=== PATIENT | male | born 1970 | race Caucasian/White ===

== ENCOUNTER 2022-04-16 08:51 | Day surgery (SDC) | payer OTHER ==
[~2022-04-16] VITALS: Ht 180.3 cm; Wt 85.0 kg
[2022-04-16] MEDS ORDERED: CLOP75 (09:59)
[2022-04-16] MEDS ORDERED: DOCU100 (09:59)
[2022-04-16] MEDS ORDERED: AMLO5 (09:59)
[2022-04-16] MEDS ORDERED: FAMO20 (10:00)
[2022-04-16] MEDS ORDERED: METO50ER (10:01)
[2022-04-16] MEDS ORDERED: PRED20 (10:02)
[2022-04-16] MEDS ORDERED: TRAZ50 (10:03)
--- NOTE | 2022-04-16 13:03 | NUR ---
PT DRESSED, IV DC'D INTACT, PT CHOOSES TO AMB WITH DAUGHTER DRIVING PT HOME, GAVE DAUGHTER 2 STATLOCKS FOR USE WITH NEW NEPH TUBES
== END 2022-04-16 13:30 | disposition home or self-care (01) ==
LOC: MHTC 08:51
DX: N13.9 Obstructive and reflux uropathy, unspecified (principal); Z93.6 Other artificial openings of urinary tract status; Z98.890 Other specified postprocedural states; Z86.79 Personal history of other diseases of the circulatory system; N13.30 Unspecified hydronephrosis
CPT/HCPCS: 50435; 99152; 99153; C1729; C1769; J2250; J3010; J7030; J7040; Q9967

== ENCOUNTER → 2024-03-09 | Outpatient (CLI) | payer OTHER ==
[~2024-03-09] MED LIST: AMLO5; CLOP75; DOCU100; FAMO20; METO50ER; PRED20; TRAZ50
== END ==
LOC: LAB SHORT 07:40 → PLD 07:40
DX: H02.89 Other specified disorders of eyelid (principal)
CPT/HCPCS: 88305

== ENCOUNTER 2024-06-17 13:59 | Emergency (ER) | payer OTHER ==
[~2024-06-17] VITALS: Ht 177.8 cm; Wt 83.9 kg
[2024-06-17 14:50] LABS: BASOPHILS ABSOLUTE AUTO 0.02 K/mm3 (0.00-0.23); BASOPHILS PERCENT AUTO 0 % (0-2); EOSINOPHILS ABSOLUTE AUTO 0.01 K/mm3 (0.00-0.68); EOSINOPHILS PERCENT AUTO 0 % (0-6); Hematocrit 39.8 % (37.0-53.0); Hemoglobin 13.7 g/dL (13.5-17.5); IMMATURE GRAN ABSOLUTE AUTO 0.11 K/mm3 (0.00-0.10); IMMATURE GRAN PERCENT AUTO 1 % (0-1); LYMPHOCYTES ABSOLUTE AUTO 0.69 K/mm3 (0.84-5.20); LYMPHOCYTES PERCENT AUTO 6 % (21-46); MONOCYTES ABSOLUTE AUTO 0.28 K/mm3 (0.16-1.47); MONOCYTES PERCENT AUTO 2 % (4-13); Mean Corpuscular HGB 31.1 pg (26.0-34.0); Mean Corpuscular HGB Conc 34.4 g/dL (31.5-36.5); Mean Corpuscular Volume 90 fL (80-100); NEUTROPHILS ABSOLUTE AUTO 10.96 K/mm3 (1.96-9.15); NEUTROPHILS PERCENT AUTO 91 % (41-73); Platelet Count 169 K/mm3 (150-400); Red Blood Cell Count 4.41 M/mm3 (4.30-5.90); White Blood Cell Count 12.07 K/mm3 (4.00-11.30)
[2024-06-17 15:10] LABS: Albumin, Blood 2.6 g/dL (3.4-5.0); Albumin/Globulin Ratio 0.7 (0.8-1.8); Bilirubin, Total 0.5 mg/dL (0.1-1.0); Calcium, Blood 8.3 mg/dL (8.5-10.1); Creatinine, Blood 1.78 mg/dL (0.60-1.20); Globulin, Blood 3.6 g/dL (2.2-4.0); Potassium, Blood 4.4 mmol/L (3.5-5.5); Total Protein, Blood 6.2 g/dL (6.4-8.2)
[2024-06-17 16:48] LABS: Source, Urine Clean Catch
[2024-06-17 16:52] LABS: Appearance, Urine Clear (Clear); Bilirubin, Urine Neg (Neg); Blood, Urine 2+ (Neg); Color, Urine Yellow (P-Yellow); Glucose Qualitative, Urine Neg (Neg); Ketones, Urine Neg (Neg); Leukocyte Esterase, Urine Neg (Neg); Nitrite, Urine Neg (Neg); Protein, Urine 4+ (Neg); Urobilinogen, Urine NORM (Normal)
[2024-06-17 17:11] LABS: Bacteria Few /hpf; Mucus Light (0-Heavy); Squamous Epithelial Cells Not Seen /hpf (Few); White Blood Cells, Urine 0-2 /hpf (0-5)
[2024-06-17] MEDS ORDERED: Prochlorperazine Edisylate 10 mg Vial IV ONE (17:30)
[2024-06-17] MEDS ORDERED: COMPAZINE10 MG PO (17:33)
[2024-06-17 17:45] VITALS: BP 140/102
== END 2024-06-17 17:54 | disposition home or self-care (01) ==
LOC: ER 13:59
PROVIDERS: Physician Assistant
DX: R60.0 Localized edema (principal); Z79.02 Long term (current) use of antithrombotics/antiplatelets; Z79.52 Long term (current) use of systemic steroids; Z79.899 Other long term (current) drug therapy
CPT/HCPCS: 80053; 81001; 85025; 96374; 99284-25; J0780

== ENCOUNTER 2024-07-13 07:37 | Day surgery (SDC) | payer OTHER ==
[2024-07-13] VITALS (7 sets, daily range): BP systolic 136–152; BP diastolic 80–103
[~2024-07-13 07:37] MED LIST changes: +COMPAZINE10 MG PO; +NS IV SCH; +RITUXIMAB ABBS IV SCH
[2024-07-13] MEDS ORDERED: DiphenhydrAMINE HCL 25 MG Cap PO SCH (08:55)
[2024-07-13] MEDS ORDERED: Acetaminophen 500 MG Tab PO SCH (08:55)
[2024-07-13] MEDS ORDERED: Vitamin D1000 UNI1 PO (11:00)
[2024-07-13] MEDS ORDERED: TUMS500 MG PO (11:00)
[2024-07-13] MEDS ORDERED: DEXA2 PO (11:01)
[2024-07-13] MEDS ORDERED: MULVITA PO (11:01)
== END 2024-07-13 14:02 | disposition home or self-care (01) ==
LOC: ATC 07:37
DX: K68.2 Retroperitoneal fibrosis (principal)
CPT/HCPCS: 96413; 96415; A9270; J7050; Q5115

== ENCOUNTER 2024-07-27 00:55 | Day surgery (SDC) | payer OTHER ==
[~2024-07-27 00:55] MED LIST changes: +DEXA2 PO; +MULVITA PO; -NS IV SCH; -RITUXIMAB ABBS IV SCH; +TUMS500 MG PO; +Vitamin D1000 UNI1 PO
[2024-07-27] MEDS ORDERED: Acetaminophen 500 MG Tab PO SCH (07:15)
[2024-07-27] MEDS ORDERED: DiphenhydrAMINE HCL 25 MG Cap PO SCH (07:15)
[2024-07-27 07:47] VITALS: BP 152/107
[2024-07-27] MEDS ORDERED: RITUXIMAB ABBS IV SCH (08:00)
[2024-07-27] MEDS ORDERED: NS IV SCH (08:00)
[2024-07-27 08:57] VITALS: BP 165/105
[2024-07-27 09:35] VITALS: BP 145/105
[2024-07-27 10:04] VITALS: BP 135/98
[2024-07-27 12:00] VITALS: BP 144/101
== END 2024-07-27 12:02 | disposition home or self-care (01) ==
LOC: ATC 00:55
DX: K68.2 Retroperitoneal fibrosis (principal); Z79.899 Other long term (current) drug therapy
CPT/HCPCS: 96413; 96415; A9270; J7050; Q5115

== ENCOUNTER 2024-09-08 15:35 | Inpatient (IN) | payer OTHER ==
[~2024-09-08] VITALS: Ht 177.8 cm; Wt 81.9 kg
[2024-09-08] MEDS ORDERED: Ipratropium/Albuterol SulF 2.5-0.5MG/3 ML Amp INH ONE (16:25)
[2024-09-08 16:57] LABS: BASOPHILS ABSOLUTE AUTO 0.01 K/mm3 (0.00-0.23); BASOPHILS PERCENT AUTO 0 % (0-2); EOSINOPHILS PERCENT AUTO 0 % (0-6); Hematocrit 33.7 % (37.0-53.0); Hemoglobin 11.7 g/dL (13.5-17.5); IMMATURE GRAN ABSOLUTE AUTO 0.28 K/mm3 (0.00-0.10); IMMATURE GRAN PERCENT AUTO 4 % (0-1); LYMPHOCYTES ABSOLUTE AUTO 0.33 K/mm3 (0.84-5.20); LYMPHOCYTES PERCENT AUTO 4 % (21-46); MONOCYTES ABSOLUTE AUTO 0.14 K/mm3 (0.16-1.47); MONOCYTES PERCENT AUTO 2 % (4-13); Mean Corpuscular HGB 31.8 pg (26.0-34.0); Mean Corpuscular HGB Conc 34.7 g/dL (31.5-36.5); Mean Corpuscular Volume 92 fL (80-100); Mean Platelet Volume 11.1 fL (9.1-12.4); NEUTROPHILS ABSOLUTE AUTO 6.82 K/mm3 (1.96-9.15); NEUTROPHILS PERCENT AUTO 90 % (41-73); NRBC ABSOLUTE 0.47 K/mm3 (0.00-0.02); NRBC Auto 6.2 /100 WBC (0.0-0.2); Platelet Count 243 K/mm3 (150-400); RDW Coefficient Variation 16.8 % (11.7-14.2); RDW Standard Deviation 56.4 fL (35.1-46.3); Red Blood Cell Count 3.68 M/mm3 (4.30-5.90); White Blood Cell Count 7.58 K/mm3 (4.00-11.30)
[2024-09-08 17:36] LABS: Albumin, Blood 2.2 g/dL (3.4-5.0); Albumin/Globulin Ratio 0.5 (0.8-1.8); Bilirubin, Total 0.9 mg/dL (0.1-1.0); Bun/Creatinine Ratio 20.4 (12.0-20.0); Calcium, Blood 9.8 mg/dL (8.5-10.1); Creatinine, Blood 1.96 mg/dL (0.60-1.20); Globulin, Blood 4.5 g/dL (2.2-4.0); Total Protein, Blood 6.7 g/dL (6.4-8.2)
[2024-09-08] MEDS ORDERED: Aspirin 325 MG Tab PO ONE (18:25)
[2024-09-08] MEDS ORDERED: Furosemide 10 MG/ML 4ML Vial IV ONE (18:45)
[2024-09-08] MEDS ORDERED: Ondansetron HCl 2 MG / ML 2ML Vial IV PRN (19:15)
[2024-09-08 20:14] LABS: Base Excess Venous -2.8 mmol/L; Bicarbonate Venous 22.8 mmol/L (24.0-30.0); PCO2 Venous 29.3 mmHg (38-42); pH Blood Venous 7.46 (7.34-7.37)
[2024-09-08 20:39] LABS: Source, Urine Clean Catch
[2024-09-08 20:42] LABS: Appearance, Urine Hazy (Clear); Bilirubin, Urine Neg (Neg); Blood, Urine 4+ (Neg); Color, Urine Yellow (P-Yellow); Glucose Qualitative, Urine Neg (Neg); Ketones, Urine Neg (Neg); Leukocyte Esterase, Urine Neg (Neg); Nitrite, Urine Neg (Neg); Protein, Urine 4+ (Neg); Specific Gravity, Urine 1.015 (1.003-1.022); Urobilinogen, Urine NORM (Normal)
[2024-09-08 20:56] LABS: Bacteria Few /hpf; Hyaline Casts 0-2 /lpf (0-2); Red Blood Cells, Urine 0-2 /hpf (0-2); Squamous Epithelial Cells Mod /hpf (Few); White Blood Cells, Urine 0-2 /hpf (0-5)
[2024-09-08] MEDS ORDERED: Heparin Sodium,Porcine 5,000 UNIT/0.5 ML SDV SC SCH (21:00)
[2024-09-08] MEDS ORDERED: Famotidine 20 MG Tab PO SCH (21:00)
[2024-09-08 21:34] LABS: U Amphetamine Screen Not Detected; U Barbituate Screen Not Detected; U Benzodiazapine Screen Not Detected; U Buprenorphine Screen Not Detected; U Cannabinoids Screen DETECTED; U Cocaine Screen Not Detected; U Methadone Screen Not Detected; U Methamphetamine Screen Not Detected; U Opiates Screen Not Detected; U Oxycodone Screen Not Detected; U Phencyclidine Screen Not Detected
[2024-09-08 22:28] LABS: Adenovirus Not Detected (NOT DETECT); Coronavirus 229E Not Detected (NOT DETECT); Coronavirus HKU1 Not Detected (NOT DETECT); Coronavirus NL63 Not Detected (NOT DETECT); Coronavirus OC43 Not Detected (NOT DETECT); Human Metapneumovirus Not Detected (NOT DETECT); Human Rhinovirus/Enterovirus Not Detected (NOT DETECT); Influenza A/2009-H1 Not Detected (NOT DETECT); Influenza A/H1 Not Detected (NOT DETECT); Influenza A/H3 Not Detected (NOT DETECT); SARS-Cov-2 (COVID-19), BioFire Not Detected (NOT DETECT)
[2024-09-08 22:29] LABS: Bordetella pertussis Not Detected (NOT DETECT); Chlamydophila pneumoniae Not Detected (NOT DETECT); Influenza B Not Detected (NOT DETECT); Mycoplasma pneumoniae Not Detected (NOT DETECT); Parainfluenza Virus 1 Not Detected (NOT DETECT); Parainfluenza Virus 2 Not Detected (NOT DETECT); Parainfluenza Virus 3 Not Detected (NOT DETECT); Parainfluenza Virus 4 Not Detected (NOT DETECT); Respiratory Syncytial Virus Not Detected (NOT DETECT)
[2024-09-09 00:10] VITALS: BP 126/110
[2024-09-09 01:42] LABS: Hematocrit 31.7 % (37.0-53.0); Hemoglobin 10.5 g/dL (13.5-17.5); Mean Corpuscular HGB 31.4 pg (26.0-34.0); Mean Corpuscular HGB Conc 33.1 g/dL (31.5-36.5); Mean Corpuscular Volume 95 fL (80-100); Mean Platelet Volume 10.9 fL (9.1-12.4); NRBC ABSOLUTE 0.29 K/mm3 (0.00-0.02); NRBC Auto 4.7 /100 WBC (0.0-0.2); Platelet Count 203 K/mm3 (150-400); RDW Coefficient Variation 16.8 % (11.7-14.2); RDW Standard Deviation 58.4 fL (35.1-46.3); Red Blood Cell Count 3.34 M/mm3 (4.30-5.90); White Blood Cell Count 6.18 K/mm3 (4.00-11.30)
[2024-09-09] MEDS ORDERED: ROSUVASTATIN CA40 MG PO (01:49)
[2024-09-09] MEDS ORDERED: FUROSEMIDE40 MG PO (01:50)
[2024-09-09] MEDS ORDERED: POTA8 PO (01:52)
[2024-09-09 02:10] LABS: Bun/Creatinine Ratio 22.8 (12.0-20.0); Calcium, Blood 8.8 mg/dL (8.5-10.1); Creatinine, Blood 1.93 mg/dL (0.60-1.20); Magnesium, Blood 2.6 mg/dL (1.6-2.4); Potassium, Blood 3.2 mmol/L (3.5-5.5)
[2024-09-09 05:15] VITALS: BP 126/91
--- NOTE | 2024-09-09 05:58 | NUR ---
SHIFT SUMMARY PT ARRIVED FROM ER AROUND MIDNIGHT. PT ABLE TO TRANSFER WITH SBA FROM [place] TO BED. ORIENTED TO ROOM. PT ARRIVED ON 5L OF OXYGEN, HOWEVER PT WAS SATING AROUND 85%. O2 INCREASED TO 7L OF HIGH FLOW OXYGEN WITH HUMIDITY. PT WITH 3+ EDEMA IN BILATERAL FEET. MEGHANA HOSE STOCKING PLACED. LACTIC ACID IMPROVED FROM 2.2 TO 1.9. NO EVENTS ON TELE, PT NSR @ 78. DENIES PAIN. VERY SOB WITH ACTIVITY. BED IN LOWEST POSITION AND CALL LIGHT IN REACH.
[2024-09-09 08:01] VITALS: BP 134/94
[2024-09-09] MEDS ORDERED: Dexamethasone 2 MG Tab PO SCH (09:00)
[2024-09-09] MEDS ORDERED: Clopidogrel Bisulfate 75 MG Tab PO SCH (09:00)
[2024-09-09] MEDS ORDERED: Furosemide 10 MG/ML 4ML Vial IV SCH (09:00)
[2024-09-09] MEDS ORDERED: AmLODIPine Besylate 5 MG Tab PO SCH (09:00)
[2024-09-09] MEDS ORDERED: Azithromycin 500 MG in NS 250 ML IV SCH (09:35)
[2024-09-09] MEDS ORDERED: Potassium Chloride 20 MEQ TabCR PO ONE (09:35)
[2024-09-09] MEDS ORDERED: CefTRIAXone Sodium 1,000 MG in NS 100 ML IV SCH (09:36)
[2024-09-09] MEDS ORDERED: NS 250 ML IV PRN (10:30)
[2024-09-09 12:07] VITALS: BP 115/89
[2024-09-09 15:59] VITALS: BP 128/87
--- NOTE | 2024-09-09 18:00 | NUR ---
SHIFT SUMMARY PATIENT ALERT AND INTERACTIVE. PATIENT SHORT OF BREATH AT REST THAT INCREASES WITH ANY ACTIVITY. PULMONOLOGY CONSULTED. CT OF CHEST DONE AND ORDERS TO COLLECT SPUTUM. CARDIOLOGY TO CONSULT FOR ELEVATED TROPONINS. PATIENT TACHY UP TO 140'S WITH ACTIVITY.
[2024-09-09 19:55] VITALS: BP 121/80
[2024-09-09] MEDS ORDERED: Lactobacil 2-S.Thermo-Bifido 1 1 Cap PO SCH (21:00)
[2024-09-10] VITALS (8 sets, daily range): BP systolic 106–128; BP diastolic 71–101
[2024-09-10 02:36] LABS: Acinetobacter baumannii DNA Not Detected copy/mL (NOT DETECT); Adenovirus DNA Not Detected (NOT DETECT); Chlamydia pneumonia Not Detected (NOT DETECT); Enterobacter cloacae DNA Not Detected copy/mL (NOT DETECT); Escherichia coli DNA Not Detected copy/mL (NOT DETECT); Haemophilus influenzae DNA Not Detected copy/mL (NOT DETECT); Human Coronavirus RNA Not Detected (NOT DETECT); Klebsiella aerogenes DNA Not Detected copy/mL (NOT DETECT); Klebsiella oxytoca DNA Not Detected copy/mL (NOT DETECT); Klebsiella pneumoniae DNA Not Detected copy/mL (NOT DETECT); Legionella pneumophila Not Detected (NOT DETECT); Moraxella catarrhalis DNA Not Detected copy/mL (NOT DETECT); Mycoplasma pneumoniae Not Detected (NOT DETECT); Proteus sp DNA Not Detected copy/mL (NOT DETECT); Pseudomonas aeruginosa DNA Not Detected copy/mL (NOT DETECT); Serratia marcescens DNA Not Detected copy/mL (NOT DETECT); Staphylococcus aureus DNA Not Detected copy/mL (NOT DETECT); Streptococcus agalactiae DNA Not Detected copy/mL (NOT DETECT); Streptococcus pneumoniae DNA Not Detected copy/mL (NOT DETECT); Streptococcus pyogenes DNA Not Detected copy/mL (NOT DETECT)
[2024-09-10 02:37] LABS: Human Metapneumovirus RNA Not Detected (NOT DETECT); Influenza virus A RNA Not Detected (NOT DETECT); Influenza virus B RNA Not Detected (NOT DETECT); Parainfluenza virus RNA Not Detected (NOT DETECT); Respiratory syncytial Vir RNA Not Detected (NOT DETECT); Rhinovirus+Enterovirus RNA Not Detected (NOT DETECT)
--- NOTE | 2024-09-10 04:31 | NUR ---
SHIFT SUMMARY PT A&Ox4. NO C/O PAIN. PT'S O2 SATS DROPPED TO THE LOW 80's WHILE SLEEPING AND WAS NOT COMING UP WITH DEEP BREATHS, SO OXYGEN INCREASED TO 10LPM AND O2 SATS IMPROVED TO 90%. PT VERY SOB WITH ACTIVITY AND HR CLIMBS TO THE 150's, BUT PT RECOVERS WITHING A COUPLE MINUTES ONCE BACK IN BED. OTHERWISE, NO EVENTS ON TELE, PT HAS BEEN NSR IN THE 80's. PT ABLE TO SLEEP MOST OF NIGHT. SPUTUM CULTURE COLLECTED AND SENT TO LAB. FLUTTER VALVE AT BEDSIDE AND PT INSTRUCTED ON USE. BED IN LOWEST POSITION AND CALL LIGHT IN REACH.
[2024-09-10 09:52] LABS: BASOPHILS ABSOLUTE AUTO 0.01 K/mm3 (0.00-0.23); BASOPHILS PERCENT AUTO 0 % (0-2); EOSINOPHILS ABSOLUTE AUTO 0.02 K/mm3 (0.00-0.68); EOSINOPHILS PERCENT AUTO 0 % (0-6); Hematocrit 31.2 % (37.0-53.0); Hemoglobin 10.7 g/dL (13.5-17.5); IMMATURE GRAN ABSOLUTE AUTO 0.23 K/mm3 (0.00-0.10); IMMATURE GRAN PERCENT AUTO 5 % (0-1); LYMPHOCYTES ABSOLUTE AUTO 0.37 K/mm3 (0.84-5.20); LYMPHOCYTES PERCENT AUTO 7 % (21-46); MONOCYTES PERCENT AUTO 2 % (4-13); Mean Corpuscular HGB 31.7 pg (26.0-34.0); Mean Corpuscular HGB Conc 34.3 g/dL (31.5-36.5); Mean Corpuscular Volume 92 fL (80-100); NEUTROPHILS ABSOLUTE AUTO 4.38 K/mm3 (1.96-9.15); NEUTROPHILS PERCENT AUTO 86 % (41-73); NRBC ABSOLUTE 0.28 K/mm3 (0.00-0.02); NRBC Auto 5.5 /100 WBC (0.0-0.2); Platelet Count 194 K/mm3 (150-400); RDW Coefficient Variation 16.6 % (11.7-14.2); RDW Standard Deviation 56.4 fL (35.1-46.3); Red Blood Cell Count 3.38 M/mm3 (4.30-5.90); White Blood Cell Count 5.11 K/mm3 (4.00-11.30)
[2024-09-10 10:06] LABS: Bun/Creatinine Ratio 22.3 (12.0-20.0); Calcium, Blood 8.3 mg/dL (8.5-10.1); Creatinine, Blood 1.57 mg/dL (0.60-1.20); Potassium, Blood 3.3 mmol/L (3.5-5.5)
[2024-09-10] MEDS ORDERED: Potassium Chloride 20 MEQ TabCR PO ONE (10:50)
[2024-09-10 10:56] LABS: PCO2 Arterial 30.1 mmHg (35-45); PO2 Arterial 65.1 mmHg (80-100); pH Blood Arterial 7.52 (7.35-7.45)
[2024-09-10] MEDS ORDERED: Famotidine 20 MG Tab PO SCH (11:00)
[2024-09-10] MEDS ORDERED: DEXTROSE 5% IV SCH (16:00)
[2024-09-10] MEDS ORDERED: TRIMETHOPRIM IV SCH (16:00)
[2024-09-10] MEDS ORDERED: SULFAMETHOXAZOLE IV SCH (16:00)
[2024-09-10] MEDS ORDERED: Clopidogrel Bisulfate 75 MG Tab PO SCH (18:00)
[2024-09-10] MEDS ORDERED: PredniSONE 20 MG Tab PO SCH (18:00)
[2024-09-10] MEDS ORDERED: AmLODIPine Besylate 5 MG Tab PO SCH (18:00)
--- NOTE | 2024-09-10 18:17 | NUR ---
Shift Summary Pt to room from medical this am, on bipap 14/6 and 60 % fio2, kept on bipap for approx an hour. Attempted to place on 15l high nc, desaturated to 70-80's, RT to room for ABG, placed on cpap ipap 10, fi02 40-45%. Dr Rivero at bedside this afternoon, new orders for airvo, notified RT, placed on 50l, 70% FIO2, spo2 >90% on airvo. Ls clear in upper lobes, fine crackles in mid and lower lobes, breathing tachypnic and labored at times, sob worsens with activity. Pt oriented to room and call light. Alert, oriented x4; anxious at times, cooperative with care. Pt denies pain, chest pain/pressure, nausea, dizziness and numb/tingling. Tele sinus tach 110-120, increases to 130-140 with activity, bp stable. Edema noted to bilateral ankles 2+, up to mid hu trace. Abd mild distended, firm, nontender, with hypoactive bt. Scattered scabs and bruising noted. Other vss. No other acute changes noted. Call light within reach.
[2024-09-11 03:19] VITALS: BP 110/87
[2024-09-11 04:16] LABS: BASOPHILS ABSOLUTE AUTO 0.01 K/mm3 (0.00-0.23); BASOPHILS PERCENT AUTO 0 % (0-2); EOSINOPHILS PERCENT AUTO 0 % (0-6); Hemoglobin 9.6 g/dL (13.5-17.5); IMMATURE GRAN ABSOLUTE AUTO 0.19 K/mm3 (0.00-0.10); IMMATURE GRAN PERCENT AUTO 4 % (0-1); LYMPHOCYTES ABSOLUTE AUTO 0.25 K/mm3 (0.84-5.20); LYMPHOCYTES PERCENT AUTO 6 % (21-46); MONOCYTES ABSOLUTE AUTO 0.06 K/mm3 (0.16-1.47); MONOCYTES PERCENT AUTO 1 % (4-13); Mean Corpuscular HGB 31.4 pg (26.0-34.0); Mean Corpuscular HGB Conc 33.1 g/dL (31.5-36.5); Mean Corpuscular Volume 95 fL (80-100); Mean Platelet Volume 11.3 fL (9.1-12.4); NEUTROPHILS ABSOLUTE AUTO 4.01 K/mm3 (1.96-9.15); NEUTROPHILS PERCENT AUTO 89 % (41-73); NRBC ABSOLUTE 0.15 K/mm3 (0.00-0.02); NRBC Auto 3.3 /100 WBC (0.0-0.2); Platelet Count 172 K/mm3 (150-400); RDW Coefficient Variation 16.6 % (11.7-14.2); Red Blood Cell Count 3.06 M/mm3 (4.30-5.90); White Blood Cell Count 4.52 K/mm3 (4.00-11.30)
[2024-09-11 04:39] LABS: Bun/Creatinine Ratio 23.6 (12.0-20.0); Calcium, Blood 8.5 mg/dL (8.5-10.1); Creatinine, Blood 1.44 mg/dL (0.60-1.20); Potassium, Blood 3.7 mmol/L (3.5-5.5)
--- NOTE | 2024-09-11 05:09 | NUR ---
SHIFT SUMMARY PT IS A+O X4 ABLE TO MAKE NEEDS KNOWN, COOPERATIVE WITH CARES. PT HAS EXPRESSED HIS WANT TO GO HOME. SBA TO BSC FOR VOIDING. PT EXPRESSED NOT HAVING BM OFFERED PRUNE JUICE AND HE DRANK THAT. ABDOMEN FIRM TO THE TOUCH HE STATES THIS IS NORMAL WHEN HAS NOT HAD A BM. BOWEL SOUNDS PRESENT IN ALL FOUR QUADRANTS. PT DESATURATED THREE TIMES DURING THE SHIFT, SAT HOB UP AND PT RECOVERED. REPLACED 02 SENSOR HAS A GOOD READING. IN NO ACTUE DISTRESS EACH TIME THIS RN CHECKED ON PT. BREATHING EVEN AND UNLABORED. TELE SHOWING SINUS TACH ON THE MONITOR 105-115. BP STABLE. EDEMA NOTIED BILAT ANKLES 2+ MEGHANA HOSE WERE IN PLACE BEFORE PT WENT. NO OTHER ACUTE CHANGES OVER NIGHT. WILL CONTINUE WITH PLAN OF CARE AND REPORT TO ONCOMING RN. TO BED HE ASKED FOR A BREAK FROM THEM
[2024-09-11 07:32] VITALS: BP 98/69
--- NOTE | 2024-09-11 07:45 | NUR ---
AM NOTE PT ALERT, ORIENTED X4; CALM AND COOPERATIVE WITH CARE. UP WITH SBA AT BEDSIDE. PT DENIES PAIN, CHEST PAIN/PRESSURE, SOB, NAUSEA, DIZZINESS AND NUMB/TINGLING. SPO2 >90% ON AIRVO THIS AM, 50L AT 55% FI02, TACHYPNIC, LS CLEAR T/O AT THIS TIME, DENIES SOB. TELE SINUS 80'S, BP STABLE. ABD MILD DISTENDED, FIRM, NONTENDER, HYPOACTIVE BT. EDEMA NOTE BLE. OTHER VSS. CALL LIGHT WITHIN REACH.
[2024-09-11 11:13] VITALS: BP 120/86
[2024-09-11] MEDS ORDERED: Artificial Tear Opth Oint 3.5 GM BOTHEYES PRN (16:10)
[2024-09-11 16:17] VITALS: BP 128/95
[2024-09-11] MEDS ORDERED: Ondansetron HCl 2 MG / ML 2ML Vial IV PRN (16:25)
--- NOTE | 2024-09-11 16:58 | NUR ---
Shift Summary This afternoon pt up moving in room and desaturated down to 70% on airvo, increase FIO2 to 97%, have titrated down to 45l at 65% this evening, pt appears to be tolerating well. Educated pt on energy conservation, pt stating "Im going to move when I want to". Dr Griffith at bedside, educating patient. Patient having multiple BMs. No other acute changes noted. Other vss.
[2024-09-11 19:31] VITALS: BP 125/92
[2024-09-12 00:09] VITALS: BP 123/69
[2024-09-12 03:57] LABS: BASOPHILS PERCENT AUTO 0 % (0-2); EOSINOPHILS PERCENT AUTO 0 % (0-6); Hematocrit 28.3 % (37.0-53.0); Hemoglobin 9.3 g/dL (13.5-17.5); IMMATURE GRAN ABSOLUTE AUTO 0.13 K/mm3 (0.00-0.10); IMMATURE GRAN PERCENT AUTO 3 % (0-1); LYMPHOCYTES ABSOLUTE AUTO 0.25 K/mm3 (0.84-5.20); LYMPHOCYTES PERCENT AUTO 5 % (21-46); MONOCYTES ABSOLUTE AUTO 0.06 K/mm3 (0.16-1.47); MONOCYTES PERCENT AUTO 1 % (4-13); Mean Corpuscular HGB 30.6 pg (26.0-34.0); Mean Corpuscular HGB Conc 32.9 g/dL (31.5-36.5); Mean Corpuscular Volume 93 fL (80-100); Mean Platelet Volume 11.5 fL (9.1-12.4); NEUTROPHILS PERCENT AUTO 91 % (41-73); NRBC ABSOLUTE 0.15 K/mm3 (0.00-0.02); NRBC Auto 3.1 /100 WBC (0.0-0.2); Platelet Count 175 K/mm3 (150-400); RDW Coefficient Variation 16.5 % (11.7-14.2); Red Blood Cell Count 3.04 M/mm3 (4.30-5.90); White Blood Cell Count 4.84 K/mm3 (4.00-11.30)
[2024-09-12 04:12] LABS: Bun/Creatinine Ratio 23.2 (12.0-20.0); Creatinine, Blood 1.42 mg/dL (0.60-1.20); Potassium, Blood 4.3 mmol/L (3.5-5.5)
[2024-09-12 04:18] VITALS: BP 112/87
--- NOTE | 2024-09-12 05:27 | NUR ---
SHIFT SUMMARY PT IS A+O X4 ABLE TO MAKE NEEDS KNOWN, MOVES ALL EXTERMITES WITH PURPOSE REPOSTIONS SELF IN BED. STANDS AT BEDSIDE TO USE URINAL FOR VOIDING. DENIES PAIN, CHEST PAIN/PRESSURE. DENIES SOB BREATHING EVEN AND UNLABORED. NO ADJUSTMENTS MADE TO AIRVO SETTING DURING NOC SHIFT. PT WAS ABLE TO REST ON AND OFF IN BETWEEN CARES. TELE SHOWS SINUS IN THE 80'S, BP STABLE. ABD MILD DISTENDED, FIRM, NONTENDER, HYPOACTIVE BT. PT WEARING MEGHANA HOSE FOR BLE. NO ACUTE EVENTS NOTED OVER NIGHT. VSS. CALL LIGHT IN REACH BED IN LOWEST POSTION. WILL CONTINUE WITH PLAN OF CARE AND REPORT TO ONCOMING RN.
--- NOTE | 2024-09-12 07:57 | NUR ---
ASSUMPTION NOTE: THIS RN TO ASSUME CARE OF PATIENT.PATIENT AWAKE AT THE EDGE OF THE BED, USING THE URINAL. PATEINT ON AIRVO, AND ASSIST BACK IN BED. HAS CALL LIGHT WITHIN REACH & BED IN LOWEST POSITION.
[2024-09-12 08:00] VITALS: BP 123/84
[2024-09-12] MEDS ORDERED: Trimethoprim/Sulfamethoxazole DS Tab PO SCH (09:00)
[2024-09-12] MEDS ORDERED: Peg 400/Hypromellose/Glycerin 15 DROP/ML BTL BOTHEYES PRN (10:15)
[2024-09-12 12:25] VITALS: BP 117/80
--- NOTE | 2024-09-12 13:40 | NUR ---
UPDATE: PATIENT WAS TAKEN DOWN TO X-RAY VIA WHEELCHAIR, THIS RN WENT WITH. PATIENT WAS PLACED ON A NON REBREATHER AT 15 LITERS AND SATURATIONS MAINTAINED >92%. ONCE RETURNING TO THE ROOM WAS PLACED BACK ON AIRVO.
[2024-09-12 15:31] VITALS: BP 125/92
[2024-09-12] MEDS ORDERED: Micafungin Sodium 100 MG in NS 100 ML IV SCH (16:00)
--- NOTE | 2024-09-12 17:38 | NUR ---
SHIFT SUMMARY: PATIENT IS ALERT AND ORIENTED X4 & COOPERATIVE WITH HIS CARE, IS ABLE TO MAKE NEEDS KNOWN & USES CALL LIGHT APPRORPAITELY. SATTING >92% ON AIRVO 40 & 63% FI02. IS ON TELE SHOWING SINUS RYTHM WITH RATE IN 80'S. PATIENT WAS TAKEN FOR A CHEST X-RAY TODAY AND STARTED ON NEW ANTIFUNGALS. PATIENT HAD FAMILY COME BY AND VISIT TODAY, WAS ABLE TO GET SOME REST THROUGHOUT SHIFT. PATIENT HAS CALL LIGHT WITHIN REACH, BED IN LOWEST POSITION AND STATING NOTHING IS NEEDED AT THIS TIME.
[2024-09-12 18:38] LABS: HIV 1,2 COMBO ANTIGEN/ANTIBODY Negative (Negative)
[2024-09-12 19:38] LABS: (1,3)-BETA-D-GLUCAN >500 pg/mL; (1,3)-BETA-D-GLUCAN INTERP Positive (Negative)
[2024-09-12 20:22] VITALS: BP 116/86
[2024-09-13] VITALS (8 sets, daily range): BP systolic 101–127; BP diastolic 67–91
--- NOTE | 2024-09-13 05:49 | NUR ---
PATIENT SUMMURY: A/O X4. DESATS WHILE SLEEPING CURRENTLY ON AIRVO AT 40/60 WHILE SLEEPING WITH SATURAION >90. SOB WITH EXCERTION WITH ACTIVITY. TELE SINUS RHYTHM 70'S. BP SOFT MAP >65. CALLS APPROPRIATLY. I PERSON ASSIST WHEN USING A BEDSIDE COMMODE/URINAL. DENIES PAIN/DISCOMFORT. CALL BURROWS IS WITHIN REACH AND BED IS AT THE LOWEST POSITION.
[2024-09-13 07:09] LABS: BASOPHILS PERCENT AUTO 0 % (0-2); EOSINOPHILS PERCENT AUTO 0 % (0-6); Hematocrit 29.6 % (37.0-53.0); Hemoglobin 9.6 g/dL (13.5-17.5); IMMATURE GRAN PERCENT AUTO 5 % (0-1); LYMPHOCYTES ABSOLUTE AUTO 0.17 K/mm3 (0.84-5.20); LYMPHOCYTES PERCENT AUTO 4 % (21-46); MONOCYTES ABSOLUTE AUTO 0.04 K/mm3 (0.16-1.47); MONOCYTES PERCENT AUTO 1 % (4-13); Mean Corpuscular HGB 30.7 pg (26.0-34.0); Mean Corpuscular HGB Conc 32.4 g/dL (31.5-36.5); Mean Corpuscular Volume 95 fL (80-100); Mean Platelet Volume 11.4 fL (9.1-12.4); NEUTROPHILS ABSOLUTE AUTO 3.98 K/mm3 (1.96-9.15); NEUTROPHILS PERCENT AUTO 91 % (41-73); NRBC ABSOLUTE 0.23 K/mm3 (0.00-0.02); NRBC Auto 5.2 /100 WBC (0.0-0.2); Platelet Count 194 K/mm3 (150-400); RDW Coefficient Variation 16.9 % (11.7-14.2); RDW Standard Deviation 57.9 fL (35.1-46.3); Red Blood Cell Count 3.13 M/mm3 (4.30-5.90); White Blood Cell Count 4.39 K/mm3 (4.00-11.30)
[2024-09-13 07:29] LABS: Bun/Creatinine Ratio 26.9 (12.0-20.0); Calcium, Blood 8.6 mg/dL (8.5-10.1); Creatinine, Blood 1.34 mg/dL (0.60-1.20); Potassium, Blood 4.5 mmol/L (3.5-5.5)
[2024-09-13] MEDS ORDERED: Furosemide 10 MG/ML 4ML Vial IV SCH (09:00)
--- NOTE | 2024-09-13 15:38 | NUR ---
THIS STUDENT NURSE CALLED ABOUT A POSITIVE SPUTUM CULTURE WITH ZAKI ALEJANDRA PRESENT. ZAKI ALEJANDRA NOTIFIED UNIT CONTROL WORKER DR. DURON. SEE NOTES FOR ANY UPDATES.
--- NOTE | 2024-09-13 16:48 | NUR ---
END OF SHIFT SUMMARY A&OX4, PT IS A 1P SBA AND IS ABLE TO MAKE HIS NEEDS KNOWN. HE HAS BEEN SR<->ST IN THE 120'S WITH PAC AND PVC. INCREASE IN HEART RATE WITH ACTIVITY. BLOOD PRESSURE HAS BEEN STABLE. PT IS ON AIRVO,AT START OF SHIFT AIRVO WAS SET TO 45LPM @ 65% FIO2 TITRATED DOWN TO 45LPM @ 50% FIO2. PT MAINTAINS SPO2 >93%. INSPIRATORY FINE CRACKLES HEARD ON AUSCULTATION OF BEE & BILATERAL LOWER LOBES. PATIENT HAS A FLUTTER VALVE AT BEDSIDE. PATIENT HAS INCREASE SOB WITH ACTIVITY. PT REPORTED NAUSEA, ONDANSETRON WAS ADMINISTERED PER EMAR. NAUSEA HAS RESOLVED BUT PT DOES NOT A HEADACHE. PT HAS URINAL WITHIN REACH THAT HE USES INDEPENDENTLY. PT WAS AMBULATED TO CHAIR TODAY. PT CURRENTLY IN BED WAITING FOR DINNER. CALL LIGHT IN REACH, SEE NOTES FOR UPDATES.
[2024-09-13] MEDS ORDERED: Calcium Carbonate 500 MG Tab Chew PO PRN (18:55)
[2024-09-14 03:56] VITALS: BP 117/96
--- NOTE | 2024-09-14 04:05 | NUR ---
A/O X4. BP STABLE MAP 65. O2 SATS >90 ON AIRVO. TELE NORMAL SINUS WITH RESTIN THE 80'S. TACHYCARDIC/ DESATURATION WHEN PATIENT STANDS TO USE THE URINAL. DENIES CHEST PAIN/PRESSURE.MEGHANA HOSE TO BLE. CALLS APPROPRIATELEY. CALL BELLIS WITHIN REACH AND BED IS AT THE LOWEST POSITION.
[2024-09-14 04:17] LABS: Hematocrit 31.5 % (37.0-53.0); Hemoglobin 10.4 g/dL (13.5-17.5); Mean Corpuscular Volume 94 fL (80-100); Mean Platelet Volume 11.8 fL (9.1-12.4); NRBC ABSOLUTE 0.36 K/mm3 (0.00-0.02); NRBC Auto 6.6 /100 WBC (0.0-0.2); Platelet Count 203 K/mm3 (150-400); RDW Coefficient Variation 16.7 % (11.7-14.2); RDW Standard Deviation 57.1 fL (35.1-46.3); Red Blood Cell Count 3.35 M/mm3 (4.30-5.90); White Blood Cell Count 5.45 K/mm3 (4.00-11.30)
[2024-09-14 04:45] LABS: Albumin, Blood 1.9 g/dL (3.4-5.0); Albumin/Globulin Ratio 0.5 (0.8-1.8); BAND PERCENT MAN 3 % (0-8); BASOPHILS PERCENT MAN 0 % (0-2); Bilirubin, Total 0.3 mg/dL (0.1-1.0); Bun/Creatinine Ratio 34.1 (12.0-20.0); Calcium, Blood 8.9 mg/dL (8.5-10.1); Creatinine, Blood 1.29 mg/dL (0.60-1.20); EOSINOPHILS PERCENT MAN 0 % (0-6); Globulin, Blood 3.7 g/dL (2.2-4.0); LYMPHOCYTES ABSOLUTE MAN 0.27 K/mm3 (0.84-5.20); LYMPHOCYTES PERCENT MAN 5 % (21-46); MONOCYTES ABSOLUTE MAN 0.16 K/mm3 (0.16-1.47); MONOCYTES PERCENT MAN 3 % (4-13); MYELOCYTE PERCENT MAN 2 % (0-0); SEG NEUTROPHILS PERCENT MAN 87 % (41-73); TOTAL CELLS COUNTED 100; Total Protein, Blood 5.6 g/dL (6.4-8.2)
[2024-09-14 08:01] VITALS: BP 134/93
[2024-09-14] MEDS ORDERED: Famotidine 20 MG Tab PO PRN ×2 (09:00→14:30)
[2024-09-14 11:29] VITALS: BP 118/88
[2024-09-14 15:42] VITALS: BP 131/99
[2024-09-14] MEDS ORDERED: Famotidine 20 MG Tab PO SCH (16:30)
--- NOTE | 2024-09-14 17:11 | NUR ---
SHIFT NOTE: PT A/OX4 ABLE TO MAKE NEEDS KNONW. HE HAS BEEN TITRATED OFF AIRVO TO HIGHFLO T/O DAY. HE IS ON 4.5L AT REST AND 6L FOR AMBULATION. HE HAS AMBULATED THE HALLS 3 TIMES T/O DAY WITH INCREASING DISTANCE EACH TIME. PT REPORTS FEELING MUCH BETTER. THIS RN EDUCATED ON BENEFITS OF SITTING IN CHAIR VS LAYING IN BED FOR LUNG EXPANSION. PT EAGER TO IMPROVE IS NOW SITTING IN CHAIR USING FLUTTER VALVE. HE REMAINS IN SINUS DENIES CHEST PAIN/PRESSURE. CALL LIGHT IN REACH, CARE CONTINUES
[2024-09-14 23:06] VITALS: BP 127/95
[2024-09-15] MEDS ORDERED: Heparin Sodium,Porcine 5,000 UNIT/0.5 ML SDV SC SCH
--- NOTE | 2024-09-15 03:15 | NUR ---
SHIFT SUMMURT: A/O X 4. ON 6 L NC WITH SATURATION >90. SINUS RHYTHM 80'S TO ST 119'S WHEN UP TO USE THE URINAL/ WITH ACTIVIY. BP STABLE/ MAP >65. DENIES CHEST PAIN/DISCOMFORT. CALLS APPROPRIATELY. CALL BURROWS WITHIN REACH AND BED IS AT THE LOWEST POSITION.
[2024-09-15 04:13] LABS: Hematocrit 36.3 % (37.0-53.0); Hemoglobin 11.9 g/dL (13.5-17.5); Mean Corpuscular HGB 30.8 pg (26.0-34.0); Mean Corpuscular HGB Conc 32.8 g/dL (31.5-36.5); Mean Corpuscular Volume 94 fL (80-100); Mean Platelet Volume 11.8 fL (9.1-12.4); NRBC Auto 7.9 /100 WBC (0.0-0.2); Platelet Count 191 K/mm3 (150-400); RDW Coefficient Variation 16.7 % (11.7-14.2); RDW Standard Deviation 56.8 fL (35.1-46.3); Red Blood Cell Count 3.86 M/mm3 (4.30-5.90); White Blood Cell Count 6.36 K/mm3 (4.00-11.30)
[2024-09-15 04:36] LABS: Bun/Creatinine Ratio 30.3 (12.0-20.0); Calcium, Blood 9.1 mg/dL (8.5-10.1); Creatinine, Blood 1.42 mg/dL (0.60-1.20); Potassium, Blood 4.9 mmol/L (3.5-5.5)
[2024-09-15 04:38] LABS: BAND PERCENT MAN 2 % (0-8); BASOPHILS PERCENT MAN 0 % (0-2); EOSINOPHILS ABSOLUTE MAN 0.06 K/mm3 (0.00-0.68); EOSINOPHILS PERCENT MAN 1 % (0-6); LYMPHOCYTES ABSOLUTE MAN 0.95 K/mm3 (0.84-5.20); LYMPHOCYTES PERCENT MAN 15 % (21-46); METAMYELOCYTE ABSOLUTE MAN 0.25 K/mm3 (0.00-0.00); METAMYELOCYTE PERCENT MAN 4 % (0-0); MONOCYTES ABSOLUTE MAN 0.06 K/mm3 (0.16-1.47); MONOCYTES PERCENT MAN 1 % (4-13); NEUTROPHILS ABSOLUTE MAN 5.02 K/mm3 (1.96-9.15); SEG NEUTROPHILS PERCENT MAN 77 % (41-73); TOTAL CELLS COUNTED 100
[2024-09-15 04:59] VITALS: BP 128/83
[2024-09-15 08:08] VITALS: BP 129/106
[2024-09-15] MEDS ORDERED: Metoprolol Tartrate 25 MG Tab PO SCH (09:00)
[2024-09-15] MEDS ORDERED: PredniSONE 20 MG Tab PO SCH (09:00)
[2024-09-15 12:09] VITALS: BP 105/91
[2024-09-15 16:21] VITALS: BP 119/91
--- NOTE | 2024-09-15 17:05 | NUR ---
SHIFT SUMMARY PATIENT DENIES PAIN AND NAUSEA. AT BEGINNINGOF SHIFT HEART RATE SUSTAINING IN THE 150'S. OXYGEN NEEDS INCREASED FROM 6L/NC TO 11L/NC TO MAINTAIN 02 SATURATION ABOVE 92%. NEW ORDER FOR METOPROLOL. THIS AFTERNOON PATIENT HEART RATE IN THE 80'S AND OXYGEN NOW AT 9L/NC TO MAINTAIN OXYGEN SATURATION ABOVE 92%. SBA TO BSC/URINAL AT BEDSIDE. GOOD APPETITE. SPEECH THERAPY WORKED WITH PATIENT. DIET NOW REGULAR EASY CHEW. PLEASANT AND COOPERATIVE WITH CARE.
[2024-09-15 20:32] VITALS: BP 103/71
[2024-09-16 00:10] VITALS: BP 103/81
[2024-09-16 04:09] VITALS: BP 108/81
--- NOTE | 2024-09-16 04:19 | NUR ---
SHIFT SUMMARY PATIENT HAD NO ACUTE CHANGES. ALERT ORIENTED AND SBA TO BSC. ON 9L HIGH FLOW STATING >92%. SOB WITH ACTIVITY DESTATS INTO THE 80'S. DENIES CHEST PAIN AND N/V. VSS/AFEBRILE. TELE MONITOR NSR 90. USES URINAL AT BEDSIDE. SLEPT MOST OF THE SHIFT. CALL LIGHT IN REACH. BED IN LOWEST POSITION. WILL CONTINUE TO MONITOR UNTIL DAY SHIFT NURSE ASSUMES CARE
[2024-09-16 04:34] LABS: Hematocrit 36.5 % (37.0-53.0); Hemoglobin 11.9 g/dL (13.5-17.5); Mean Corpuscular HGB 30.7 pg (26.0-34.0); Mean Corpuscular HGB Conc 32.6 g/dL (31.5-36.5); Mean Corpuscular Volume 94 fL (80-100); Mean Platelet Volume 12.3 fL (9.1-12.4); NRBC ABSOLUTE 0.22 K/mm3 (0.00-0.02); NRBC Auto 3.3 /100 WBC (0.0-0.2); Platelet Count 180 K/mm3 (150-400); RDW Coefficient Variation 16.8 % (11.7-14.2); RDW Standard Deviation 56.8 fL (35.1-46.3); Red Blood Cell Count 3.88 M/mm3 (4.30-5.90); White Blood Cell Count 6.64 K/mm3 (4.00-11.30)
[2024-09-16 05:10] LABS: Bun/Creatinine Ratio 31.2 (12.0-20.0); Calcium, Blood 9.1 mg/dL (8.5-10.1); Creatinine, Blood 1.44 mg/dL (0.60-1.20); Potassium, Blood 4.2 mmol/L (3.5-5.5)
[2024-09-16 05:40] LABS: BAND PERCENT MAN 10 % (0-8); BASOPHILS PERCENT MAN 0 % (0-2); EOSINOPHILS PERCENT MAN 0 % (0-6); LYMPHOCYTES ABSOLUTE MAN 0.66 K/mm3 (0.84-5.20); LYMPHOCYTES PERCENT MAN 10 % (21-46); METAMYELOCYTE ABSOLUTE MAN 0.13 K/mm3 (0.00-0.00); METAMYELOCYTE PERCENT MAN 2 % (0-0); MONOCYTES ABSOLUTE MAN 0.33 K/mm3 (0.16-1.47); MONOCYTES PERCENT MAN 5 % (4-13); NEUTROPHILS ABSOLUTE MAN 5.51 K/mm3 (1.96-9.15); SEG NEUTROPHILS PERCENT MAN 73 % (41-73); TOTAL CELLS COUNTED 100
[2024-09-16 07:21] VITALS: BP 123/89
[2024-09-16] MEDS ORDERED: Acetaminophen 325 MG TABLET PO PRN (07:30)
[2024-09-16] MEDS ORDERED: Metoprolol Tartrate 1 MG/ML 5 ML VIAL IV ONE (09:00)
[2024-09-16] MEDS ORDERED: Furosemide 10 MG/ML 4ML Vial IV SCH (09:00)
[2024-09-16 11:50] VITALS: BP 104/88
[2024-09-16 16:09] VITALS: BP 117/93
--- NOTE | 2024-09-16 17:42 | NUR ---
SHIFT SUMMARY: PT A&O X4. PLEASANT AND COOPERATIVE WITH CARE. SBA TO BSC AND RECLINER. PT HAD TO HAVE DOSE OF LOPRESSOR THIS AM D/T SUSTAINING PULSE IN 150'S. PT CONVERTED QUICKLY TO 110'S AND 90'S. PT ON 10L HIGH FLOW MAINTAINING SATS LOW 90'S. PT CURRENTLY WITH A PULSE OF 87 AND 02 OF 91%. PT UP IN RECLINER EATING DINNER. VOIDING WELL USING URINAL. REPEAT CHEST XRAY COMPLETED THIS SHIFT CONSISTENT WITH PNEUMONIA. DOSE OF TYLENOL GIVEN WITH AM D/T HEADACHE. NO C/O PAIN REST OF SHIFT. CALL LIGHT IN REACH.
[2024-09-16 19:45] VITALS: BP 116/90
[2024-09-17 00:09] VITALS: BP 108/74
[2024-09-17 04:59] LABS: Hematocrit 35.8 % (37.0-53.0); Hemoglobin 12.1 g/dL (13.5-17.5); Mean Corpuscular HGB 30.9 pg (26.0-34.0); Mean Corpuscular HGB Conc 33.8 g/dL (31.5-36.5); Mean Corpuscular Volume 92 fL (80-100); NRBC ABSOLUTE 0.07 K/mm3 (0.00-0.02); Platelet Count 173 K/mm3 (150-400); RDW Coefficient Variation 16.4 % (11.7-14.2); RDW Standard Deviation 54.9 fL (35.1-46.3); Red Blood Cell Count 3.91 M/mm3 (4.30-5.90); White Blood Cell Count 6.97 K/mm3 (4.00-11.30)
[2024-09-17 05:29] LABS: BAND PERCENT MAN 4 % (0-8); BASOPHILS PERCENT MAN 0 % (0-2); EOSINOPHILS PERCENT MAN 0 % (0-6); LYMPHOCYTES ABSOLUTE MAN 0.55 K/mm3 (0.84-5.20); LYMPHOCYTES PERCENT MAN 8 % (21-46); MONOCYTES ABSOLUTE MAN 0.41 K/mm3 (0.16-1.47); MONOCYTES PERCENT MAN 6 % (4-13); NEUTROPHILS ABSOLUTE MAN 5.99 K/mm3 (1.96-9.15); SEG NEUTROPHILS PERCENT MAN 82 % (41-73); TOTAL CELLS COUNTED 100
[2024-09-17 05:30] LABS: Bun/Creatinine Ratio 36.5 (12.0-20.0); Calcium, Blood 8.6 mg/dL (8.5-10.1); Creatinine, Blood 1.37 mg/dL (0.60-1.20)
[2024-09-17 05:48] VITALS: BP 108/74
--- NOTE | 2024-09-17 05:48 | NUR ---
SHIFT SUMMARY: PLESANT AND COPERATIVE WITH CARES, ABLE TO MAKE HIS NEEDS KNOWN, SPOKE WITH MD THIS SHIFT AND CAME UP WITH A PLAN FOR FRIDAY TO [facility] PT, PT IS EXCITED TO HAVE A PLAN AND FEEL LIKE HES GOING TOWARD PROGRESS, VSS, CONT BAB, ON 9L MOD FLOW NC, TOLERATING WELL, IND IN ROOM CALL LIGHT AND FREQUENTLY USED ITEMS WITH IN REACH AT THIS TIME
[2024-09-17 07:41] VITALS: BP 117/96
[2024-09-17 11:41] VITALS: BP 117/92
--- NOTE | 2024-09-17 15:04 | NUR ---
TRANSFER OF CARE PT 02 REAMINED ABOVE 94% 9L HI-JOANN. PT IS IND IN ROOM, ABLE TO MAKE NEEDS KNOWN, CALLS APPROPRIATELY. TOLERATING INTAKE AND OUTPUT. PT REMAINED SINUS TACH 90-100'S T/O SHIFT. DR. DEE CONFIRMED PLAN FOR BRONCHOSCOPY ON FRIDAY.
--- NOTE | 2024-09-17 15:22 | NUR ---
jovanni rn reccieved report from juliano rn and student rn. this rn to take over in care.
[2024-09-17 16:03] VITALS: BP 114/90
--- NOTE | 2024-09-17 16:42 | NUR ---
SHIFT SUMMARY/ ASSUMPTION OF CARE TOOK OVER CARE FOR THIS PT AT 1520. PT A&O X4, INDEPENDENT IN ROOM, CALLS/ EXPRESSES NEEDS APPROPRIATELY. PT SATURATING IN 90s ON 9LO2 HIGH FLOW CANNULA. HR CONSISTENTLY IN 120s WITH PT COMPLAINING OF SOB ON EXERTION. CRACKLES IN BILAT LOWER LOBES. PT TOLERATING DIET W NO NAUSEA.
--- NOTE | 2024-09-17 16:44 | NUR ---
PT REFUSED HEPARIN SC SHOT THIS EVENING. PT STATED THAT HE FELT THAT HE HAS BEEN "?POKED TOO MANY TIMES SINCE I HAVE BEEN HERE." PT REWUESTED AN ALTENATIVE. THIS RN NOTIFIED , NEW ORDER TO BE PLACED BY .
[2024-09-17 20:11] VITALS: BP 112/75
[2024-09-18] VITALS (8 sets, daily range): BP systolic 104–123; BP diastolic 76–92
--- NOTE | 2024-09-18 07:18 | NUR ---
SHIFT SUMMARY PT A/OX4, PLEASANT AND COOPERATIVE WITH CARE. PT DENIES PAIN. VSS, HR 90S-100S IN A SINUS RHYTHM-SINUS TACH. CRACKLES IN BASES, PT ON 9L HF NC, SATS ABOVE 90%/ PT USING BEDSIDE URINAL NEEDED. PT SLEPT MOST OF SHIFT. NO ACUTE EVENTS THIS SHIFT.
--- NOTE | 2024-09-18 07:40 | NUR ---
ASSUMPTION NOTE: THIS RN TO ASSUME CARE OF PATIENT, PATIENT AWAKE AND CHATTING WITH THE DOCTOR AT BEDSIDE. PLAN WILL BE TO CONTINUE ANTIBITOICS AND A BRONCOSOPY ON FRIDAY, PATIENT AWARE TO BE NPO MIDNIGHT OF FRIDAY FOR THAT. VITAL SIGNS STABLE. PATIENT HAS CALL LIGHT WITHIN REACH, BED IN LOWEST POSITION AND STATING NOTHING IS NEEDED AT THIS TIME.
[2024-09-18 08:49] LABS: BASOPHILS ABSOLUTE AUTO 0.02 K/mm3 (0.00-0.23); BASOPHILS PERCENT AUTO 0 % (0-2); EOSINOPHILS PERCENT AUTO 0 % (0-6); Hematocrit 42.2 % (37.0-53.0); Hemoglobin 13.9 g/dL (13.5-17.5); IMMATURE GRAN PERCENT AUTO 2 % (0-1); LYMPHOCYTES ABSOLUTE AUTO 0.81 K/mm3 (0.84-5.20); LYMPHOCYTES PERCENT AUTO 10 % (21-46); MONOCYTES ABSOLUTE AUTO 0.24 K/mm3 (0.16-1.47); MONOCYTES PERCENT AUTO 3 % (4-13); Mean Corpuscular HGB 30.6 pg (26.0-34.0); Mean Corpuscular HGB Conc 32.9 g/dL (31.5-36.5); Mean Corpuscular Volume 93 fL (80-100); Mean Platelet Volume 11.5 fL (9.1-12.4); NEUTROPHILS ABSOLUTE AUTO 7.03 K/mm3 (1.96-9.15); NEUTROPHILS PERCENT AUTO 85 % (41-73); NRBC ABSOLUTE 0.05 K/mm3 (0.00-0.02); NRBC Auto 0.6 /100 WBC (0.0-0.2); Platelet Count 226 K/mm3 (150-400); RDW Coefficient Variation 16.3 % (11.7-14.2); RDW Standard Deviation 54.6 fL (35.1-46.3); Red Blood Cell Count 4.54 M/mm3 (4.30-5.90)
[2024-09-18 09:12] LABS: Bun/Creatinine Ratio 29.9 (12.0-20.0); Calcium, Blood 9.1 mg/dL (8.5-10.1); Creatinine, Blood 1.54 mg/dL (0.60-1.20); Potassium, Blood 3.5 mmol/L (3.5-5.5)
--- NOTE | 2024-09-18 12:11 | NUR ---
NOTIFIED; THIS RN NOTIFIED MD REGARDING PATIENTS OCCASIONAL BOUTS OF TOUCHING INTO THE 140'S IN HEART RATE, PATIENT IS ASYMPTOMATIC & BLOOD PRESSRUE STABLE DURING THESE EVENTS. NO NEW ORDERS WERE GIVEN AT THIS TIME.
--- NOTE | 2024-09-18 15:25 | NUR ---
ASSUMPTION OF CARE PT IS A&OX4, CALLS APPROPRIATELY. MOTOR FUNCTION INTACT. O2 IS MAINTAINED AT >90% ON 8L HI-FLOW O2 VIA NASAL CANNULA. BILATERAL UPPER LOBES ARE CLEAR ON AUSCULTATION, INPIRATORY CRACKLES HEARD ON BILATERAL LOWER LOBE AND RML. PT HAS FLUTTER VALVE AT BED SIDE AND WAS PREVIOUSLY EDUCATED ON PROPER USE OF THE DEVISE. HEART RATE WAS REPORTED AT SR/ST 90'S TO 100'S. BLOOD PRESSURE IS STABLE. PT IS A SBA. BED IS AT LOWEST POSITION WITH CALL LIGHT IN REACH.
--- NOTE | 2024-09-18 17:44 | NUR ---
END OF SHIFT REPORT NO CHANGES FROM ASSUMPTION OF CARE REPORT.
[2024-09-19 04:19] VITALS: BP 120/99
--- NOTE | 2024-09-19 05:49 | NUR ---
SHIFT SUMMARY PATIENT ALERT, ORIENTED x4. ABLE TO MAKE NEEDS KNOWN. BP STABLE. ATTEMPT TO TITRATE PATIENT DOWN ON O2, UNABLE TO TOLERATE. PATIENT REMAINS ON 8L NC WITH SPO2 LOW TO MID 90s. DENIES SOB DURING THE NIGHT. PATIENT ABLE TO HAVE BOWEL MOVEMENT. USING URINAL INDEPENDENTLY. NO OTHER CHANGES DURING THE NIGHT, WILL REPORT TO DAY SHIFT RN.
--- NOTE | 2024-09-19 07:25 | NUR ---
ASSUMPTION NOTE: THIS RN TO ASSUME CARE OF PATIENT. PATIENT IS SLEEPING IN ROOM,EASILY AROUSABLE. DENIED ANY CHEST PAIN/PRESSURE. HAS CALL LIGHT WITHIN REACH & BED IN LOWEST POSITION. STATES NOTHING IS NEEDED AT THIS TIME.
[2024-09-19 07:53] VITALS: BP 115/88
[2024-09-19] MEDS ORDERED: Enoxaparin 40 MG/0.4 ML SYR SC SCH (09:00)
--- NOTE | 2024-09-19 10:37 | NUR ---
PULMONOLOGY ROUNDED: ROUNDED AND UPATED PATIENT REGARDING POSSIBLE BRONCH TOMORROW 4.21. PATIENT AWARE HE WILL BECOME NPO AT MIDNIGHT TONIGH, WE WILL HOLD ANY ANTICOAUGLATIONS IN THE AM WITH MORNING MEDICATIONS. STATED THE NEW PULMONOLIGST WILL DECIDE WHETER OR NOT THE BRONCH WILL GET DONE.
[2024-09-19 12:04] VITALS: BP 112/89
[2024-09-19 16:09] VITALS: BP 118/79
--- NOTE | 2024-09-19 17:01 | NUR ---
SHIFT SUMMARY: PATIENT IS ALERT AND ORIENTED X4 & COOPERATIVE WITH HIS CARE, IS ABLE TO MAKE NEEDS KNOWN & USES CALL LIGHT APPROPRIRATELY. PATIENT SATTING >92% ON ANYWEHRE FROM 6-8LITERS THROUGHOUT SHIFT. PATIENT ON TELE SHOWING SINUS TACH WITH RATE IN 110-130. DID TOUCH UP TO 130 WHEN WALKING AROUND THE [place]. TOLERATED THE WALK WELL, WAS ON 10 LITERS VIA OXYGEN TANK AND SPOT CHECK WAS 88% SO PATIENT RETURNED TO ROOM AND WAS PALCED ON HEATED HIGH FLOW AT 8 LITERS. PATIENT GOT A BED BATH TODAY AND SAT IN THE CHAIR FOR A BIT TODAY. IS AWARE HE WILL BECOME NPO AT MIDNIGHT TONIGHT FOR A BRONCHOSPY TOMORROW 4.21, WE WILL HOLD HIS ANTICOAUGLATIONS IN THE AM WELL. PATIENT HAS CALL LIGHT WITHIN REACH, BED IN LOWEST POSITION & STATING NOTHING IS NEEDED AT THIS TIME.
[2024-09-19 20:39] VITALS: BP 122/92
[2024-09-20 00:05] VITALS: BP 104/75
[2024-09-20 04:17] LABS: BASOPHILS ABSOLUTE AUTO 0.02 K/mm3 (0.00-0.23); BASOPHILS PERCENT AUTO 0 % (0-2); EOSINOPHILS ABSOLUTE AUTO 0.01 K/mm3 (0.00-0.68); EOSINOPHILS PERCENT AUTO 0 % (0-6); Hematocrit 34.1 % (37.0-53.0); Hemoglobin 11.6 g/dL (13.5-17.5); IMMATURE GRAN ABSOLUTE AUTO 0.31 K/mm3 (0.00-0.10); IMMATURE GRAN PERCENT AUTO 4 % (0-1); LYMPHOCYTES ABSOLUTE AUTO 0.51 K/mm3 (0.84-5.20); LYMPHOCYTES PERCENT AUTO 7 % (21-46); MONOCYTES ABSOLUTE AUTO 0.52 K/mm3 (0.16-1.47); MONOCYTES PERCENT AUTO 7 % (4-13); Mean Corpuscular HGB 31.3 pg (26.0-34.0); Mean Corpuscular Volume 92 fL (80-100); Mean Platelet Volume 11.7 fL (9.1-12.4); NEUTROPHILS PERCENT AUTO 81 % (41-73); NRBC ABSOLUTE 0.08 K/mm3 (0.00-0.02); NRBC Auto 1.1 /100 WBC (0.0-0.2); Platelet Count 175 K/mm3 (150-400); RDW Standard Deviation 53.5 fL (35.1-46.3); Red Blood Cell Count 3.71 M/mm3 (4.30-5.90); White Blood Cell Count 7.37 K/mm3 (4.00-11.30)
--- NOTE | 2024-09-20 04:25 | NUR ---
SHIFT SUMMARY: PT IS NPO SINCE 12 AM FOR UP CONING PROCEDURE, PT IS AWARE OF CONFLICT FROM SURGEON FOR A POTENTIAL NEED TO POSTPONE, ALET AND ORIENTED ABLE TO MAKE HIS NEEDS KNOWN, CONT OF BAB INDEPENDANT IN ROOM, LUNGS- R DIM AND COURSE, L- AIR IS HEARD MOVING THROUGH CLEAR BUT DIM WITH EXPRITORY WHEEZE PT HAS CALL LIGHT AND FREQUENTLY USED ITES WITHIN REACH
[2024-09-20 04:45] LABS: Bun/Creatinine Ratio 35.8 (12.0-20.0); Calcium, Blood 8.8 mg/dL (8.5-10.1); Creatinine, Blood 1.37 mg/dL (0.60-1.20); Potassium, Blood 3.5 mmol/L (3.5-5.5)
[2024-09-20 08:37] VITALS: BP 104/78
[2024-09-20 12:36] VITALS: BP 110/82
[2024-09-20 15:17] VITALS: BP 109/80
[2024-09-20 17:00] VITALS: BP 117/85
--- NOTE | 2024-09-20 17:55 | NUR ---
SHIFT SUMMARY: PATIENT IS A/O X4, PLEASANT AND COOPERATIVE WITH HIS CARE, ABLE TO COMMUNICATE NEEDS. PATIENTS O2 SATURATION WAS >90% ON 3-5L HEATED HIGH FLOW NC, TELE SHOWS NSR/ST WITH HR RANGE FROM 90'S-100'S. EXPRESSED DISSATISFACTION WITH MEAL TRAY BUT WAS HAPPY WITH A DINNER PLATE BUILT OUT OF THE PANTRY, HE SAT UP IN HIS CHAIR FOR DINNER. DR DELAYED THE BRONCHOSPY PENDING A CHEST CT. CHEST CT SHOWED MINIMAL IMPROVEMENT WHEN COMPAIRED TO PREVIOUS SCAN. PATIENT WILL BECOME NPO AT 0800 FOR A BRONCHOSCOPY WITH [place] TOMORROW 09/21/24 AROUND 1200. PATIENT CAN HAVE CLEAR LIQUIDS UNTIL 0800 (BLACK COFFEE, APPLE JUICE, OR JELLO). PER PROVIDER, ALL MORNING MEDS ARE OK TO GIVE. CALL LIGHT WITHIN REACH, BED IS IN THE LOWEST POSITION, DENIES FURTHER NEEDS AT THIS TIME.
[2024-09-20 20:00] VITALS: BP 98/62
[2024-09-21] VITALS (8 sets, daily range): BP systolic 111–131; BP diastolic 82–103
[2024-09-21 04:34] LABS: BASOPHILS ABSOLUTE AUTO 0.01 K/mm3 (0.00-0.23); BASOPHILS PERCENT AUTO 0 % (0-2); EOSINOPHILS PERCENT AUTO 0 % (0-6); Hematocrit 34.8 % (37.0-53.0); Hemoglobin 11.5 g/dL (13.5-17.5); IMMATURE GRAN ABSOLUTE AUTO 0.31 K/mm3 (0.00-0.10); IMMATURE GRAN PERCENT AUTO 4 % (0-1); LYMPHOCYTES ABSOLUTE AUTO 0.41 K/mm3 (0.84-5.20); LYMPHOCYTES PERCENT AUTO 5 % (21-46); MONOCYTES ABSOLUTE AUTO 0.36 K/mm3 (0.16-1.47); MONOCYTES PERCENT AUTO 5 % (4-13); Mean Corpuscular HGB 30.2 pg (26.0-34.0); Mean Corpuscular Volume 91 fL (80-100); Mean Platelet Volume 11.4 fL (9.1-12.4); NEUTROPHILS ABSOLUTE AUTO 6.59 K/mm3 (1.96-9.15); NEUTROPHILS PERCENT AUTO 86 % (41-73); NRBC ABSOLUTE 0.07 K/mm3 (0.00-0.02); NRBC Auto 0.9 /100 WBC (0.0-0.2); Platelet Count 182 K/mm3 (150-400); RDW Coefficient Variation 15.9 % (11.7-14.2); RDW Standard Deviation 53.4 fL (35.1-46.3); Red Blood Cell Count 3.81 M/mm3 (4.30-5.90); White Blood Cell Count 7.68 K/mm3 (4.00-11.30)
[2024-09-21 04:54] LABS: Bun/Creatinine Ratio 35.8 (12.0-20.0); Calcium, Blood 8.5 mg/dL (8.5-10.1); Creatinine, Blood 1.37 mg/dL (0.60-1.20); Potassium, Blood 3.8 mmol/L (3.5-5.5)
--- NOTE | 2024-09-21 06:13 | NUR ---
SHIFT SUMMARY PT HAS TOLERATED SHIFT WELL WITH NO CHANGES IN STATUS. PT CONTINUES TO BE ON 5L HIGH FLOW NASAL CANULA AND APPEARS TO BE IN GOOD SPIRITS THIS MORNING. PT HAS BEEN ON CLEAR LIQUIDS SINCE MIDNIGHT AND WILL BE NPO AT 8 FOR BRONCHOSCOPY. WILL CONTINUE TO MONITOR UNTIL REPORT PASSED TO DAY SHIFT TEAM.
[2024-09-21] MEDS ORDERED: Oxymetazoline 0.05% Nasal Relief Spray 15mL BTL PRN (09:20)
--- NOTE | 2024-09-21 09:24 | NUR ---
AM NOTE: PATIENT ALERT AND ORIENTED X4. USING CALL LIGHT FOR NEEDS. DENIES PAIN. MOVING ALL EXTREMITIES AND TURNING SELF IN BED. UP WITH SBA TO HELP MANAGE LINES AND CORDS. TELE SHOWING SR WITH HR 80-110'S. DENIES CHEST PAIN/PRESSURE/PALPITATIONS. SBP 110'S. MILD EDEMA TO BLE. PPP. SCATTERED BRUISING NOTED TO BILATERAL ARMS AND ABDOMIN. IV ABX INFUSED THIS AM. ON 4L HIGH FLOW NASAL CANNULA SATING MID 90'S. OCCASIONAL PRODUCIVE COUGH. EVEN AND UNLABORED RESPIRATIONS AT REST. SOB WITH EXCERTION. LUNG SOUNDS CLEAR IN BILATERAL UPPER LOBES AND DIM IN BASES. NOSE BLEED THIS AM. GAUZE AND ICE APPLIED. DR. GRAHAM UPDATED AND NEW ORDERS IN PLACE PENDING PHARMACY VERIFICATION. BOWEL TONES PRESENT THROUGHOUT ALL FOUR QUADRANTS. DENIES ABDOMINAL PAIN BUT STATES DUE TO HIS RETROPERITONEAL CIRRHOSIS HE HAS CHRONIC INTERMIT TENDERNESS. USING URINAL IND. NPO AT [address]. BLANCHABLE REDNESS NOTED TO COCCYX. CALL LIGHT IN REACH. PATIENT DENIES NEEDS AT THIS TIME.
--- NOTE | 2024-09-21 09:46 | NUR ---
DR. OLIVARES TO BEDSIDE, THIS RN PRESENT FOR ROUNDING. PLAN FOR BRONCH AROUND 1200. DR. OLIVARES UPDATED ON NOSE BLEED. PATIENT ON 4L AT THIS TIME. NASAL SPRAY ADMINISTERED. SCD'S IN PLACE.
--- NOTE | 2024-09-21 10:35 | NUR ---
DR. GRAHAM TO BEDSIDE, THIS RN PRESENT FOR MD ROUNDING. ORDERS TO PLACE NOSE PRONG ON PATIENT AT THIS TIME TO ASSIST WITH NOSE BLEED. NOSE PRONG IN PLACE. PATIENT EDUCATED ON NOSE PRONG.
[2024-09-21] MEDS ORDERED: Lidocaine 2% 5 ML SDV ONE (12:37)
[2024-09-21] MEDS ORDERED: Lidocaine 2% Jelly Uro-Jet ONE (12:37)
[2024-09-21] MEDS ORDERED: EpiNEPhrine 1 MG/1 ML 1ML Vial ONE (12:37)
[2024-09-21] MEDS ORDERED: Lactated Ringer's 1,000 ML IV SCH (12:50)
--- NOTE | 2024-09-21 12:57 | NUR ---
PATIENT TO DAY SURGERY FOR BRONCH. KEYBOARD INSTRUMENT REPAIRER UPDATED.
--- NOTE | 2024-09-21 14:20 | NUR ---
PATIENT BACK FROM DAY SURGERY. UNABLE TO COMPLETE BRONCH DUE TO CONCERN FOR ASPIRATION WITH NOSE BLEED. PATIENT ABLE TO EAT AT THIS TIME. CALL LIGHT IN REACH.
--- NOTE | 2024-09-21 16:20 | NUR ---
09/22 AM BRONCHOSCOPY ON HOLD AT THIS TIME PER DR. OLIVARES. PATIENT OKAY TO EAT. NPO ORDER DISCONTINUED.
--- NOTE | 2024-09-21 17:45 | NUR ---
SHIFT SUMMARY: PATIENT REMAINS ALERT AND ORIENTED. TELE SHOWING SR/ST WITH HR 80-100'S. DENIES CHEST PAIN/PRESSURE/PALPITATIONS. ON 2L NASAL CANNULA. NO FURTHER NOSE BLEED. EATING DINNER AT THIS TIME. BOWEL MOVEMENT X1. USING URINAL IND. CALL LIGHT IN REACH. DENIES NEEDS AT THIS TIME.
[2024-09-22] VITALS (8 sets, daily range): BP systolic 93–114; BP diastolic 68–88
--- NOTE | 2024-09-22 03:12 | NUR ---
PATIENT DESATTED INTO THE 70'S WHILE SLEEPING RN EDA INCREASED PATIENTS OXYGEN TO 4LPM. PATIENTS OXYGEN INCREASED INTO THE MID 90'S THIS RN DECREASED OXYGEN TO 2LPM-PATIENT DESATTED INTO THE MID 80'S, OXYGEN BUMPED UP TO 3LPM AT THIS TIME PATIENT IS SATTING AT 97, OXYGEN DECREASED TO 2LPM WILL CONTINUE TO WATCH AND TITRATE OXYGEN APPROPRIATE FOR PATIENT.
--- NOTE | 2024-09-22 04:24 | NUR ---
PATIENT REPORTS THAT HE HAS HAD SOB WHEN TAKING DEEP BREATHS. PATIENT REPORTS THAT HE IS NOT FEELING WELL THIS MORNING BUT IS FEELING "KIND OF LIKE HOW I WAS BEFORE I CAN IN BUT NOT BAD". PATIENT REPORTS NAUSEA THIS MORNING-MEDICATED PER ORDERS; SEE EMARMiguel A VALENCIANT ALSO REPORTS THAT HE FEELS LIKE IT IS HARD TO CATCH HIS BREATH AFTER HE EXPERIENCES SOB.
[2024-09-22 04:36] LABS: BASOPHILS ABSOLUTE AUTO 0.01 K/mm3 (0.00-0.23); BASOPHILS PERCENT AUTO 0 % (0-2); EOSINOPHILS PERCENT AUTO 0 % (0-6); Hematocrit 34.5 % (37.0-53.0); Hemoglobin 11.6 g/dL (13.5-17.5); IMMATURE GRAN ABSOLUTE AUTO 0.41 K/mm3 (0.00-0.10); IMMATURE GRAN PERCENT AUTO 5 % (0-1); LYMPHOCYTES ABSOLUTE AUTO 0.76 K/mm3 (0.84-5.20); LYMPHOCYTES PERCENT AUTO 9 % (21-46); MONOCYTES ABSOLUTE AUTO 0.62 K/mm3 (0.16-1.47); MONOCYTES PERCENT AUTO 7 % (4-13); Mean Corpuscular HGB 30.6 pg (26.0-34.0); Mean Corpuscular HGB Conc 33.6 g/dL (31.5-36.5); Mean Corpuscular Volume 91 fL (80-100); Mean Platelet Volume 11.1 fL (9.1-12.4); NEUTROPHILS ABSOLUTE AUTO 6.92 K/mm3 (1.96-9.15); NEUTROPHILS PERCENT AUTO 79 % (41-73); NRBC ABSOLUTE 0.14 K/mm3 (0.00-0.02); NRBC Auto 1.6 /100 WBC (0.0-0.2); Platelet Count 181 K/mm3 (150-400); RDW Standard Deviation 53.2 fL (35.1-46.3); Red Blood Cell Count 3.79 M/mm3 (4.30-5.90); White Blood Cell Count 8.72 K/mm3 (4.00-11.30)
--- NOTE | 2024-09-22 04:59 | NUR ---
SHIFT SUMMARY. PATIENT IS A&OX4 AND ABLE TO MAKE HIS NEEDS KNOWN. PATIENT IS PLEASANT AND COOPERATIVE WITH CARE. PATIENT REPORTED NAUSEA THIS MORNING AND FEELING POOR THIS MORNING-SEE PREVIOUS NOTE. PATIENT WILL STAND AT SIDE OF BED TO MOVE LEGS. PATIENT USING URINAL AT BEDSIDE. PATIENT DESATTED TONIGHT-SEE PREVIOUS NOTES. BED IS LOCKED IN THE LOWEST POSITION WITH CALL LIGHT IN REACH. CARE IS ONGOING.
[2024-09-22 05:08] LABS: Bun/Creatinine Ratio 34.5 (12.0-20.0); Calcium, Blood 8.5 mg/dL (8.5-10.1); Creatinine, Blood 1.42 mg/dL (0.60-1.20); Potassium, Blood 3.4 mmol/L (3.5-5.5)
--- NOTE | 2024-09-22 09:19 | NUR ---
Tachycardia, 130-140 bpm while sitting on side of bed, eating breakfast. B/P stable, Spo2 88% on 4 l/min and otherwise asymptomatic. Increased O2 delivery to 5 l/min and pt also finished eating, heart rate decreased to 124 bpm and spo2 improved to 92-93%. Pt denies dyspnea at this time. STates he has dyspnea intermittently.
[2024-09-22] MEDS ORDERED: Potassium Chloride 20 MEQ TabCR PO ONE (11:50)
[2024-09-22 12:39] LABS: Bun/Creatinine Ratio 33.1 (12.0-20.0); Calcium, Blood 8.3 mg/dL (8.5-10.1); Creatinine, Blood 1.45 mg/dL (0.60-1.20); Potassium, Blood 3.7 mmol/L (3.5-5.5)
[2024-09-22] MEDS ORDERED: Lidocaine 2% Viscous Soln 20 ML,Nystatin 100,000 Unit/ml Susp 20 ML,Mag Hydrox/Al Hydro... MT SCH (17:00)
[2024-09-22] MEDS ORDERED: Magnesium Hydroxide Conc 10 ML UDC PO PRN (17:45)
[2024-09-22] MEDS ORDERED: Bisacodyl 10 MG Supp PR PRN (17:50)
--- NOTE | 2024-09-22 18:56 | NUR ---
A&Ox4 ON 3LNC. HE USES THE URINAL AND BSC W/SBA. HOME O2 EVAL DONE AND DECISION WAS MADE TO HAVE PT REMAIN IN HOSPITAL D/T HIGH O2 DEMAND ON AMBULATION. PT WAS C/O OF CONSTIPATION, NOTIFIED MD AND BOWEL REGIMEN WAS ORDERED.
[2024-09-22] MEDS ORDERED: Sennosides 8.6 MG Tab PO SCH (21:00)
[2024-09-22] MEDS ORDERED: Docusate Sodium 100 MG Cap PO SCH (21:00)
[2024-09-23] VITALS (7 sets, daily range): BP systolic 96–120; BP diastolic 65–95
[2024-09-23 04:15] LABS: Hematocrit 35.1 % (37.0-53.0); Hemoglobin 11.7 g/dL (13.5-17.5); Mean Corpuscular HGB 30.8 pg (26.0-34.0); Mean Corpuscular HGB Conc 33.3 g/dL (31.5-36.5); Mean Corpuscular Volume 92 fL (80-100); Mean Platelet Volume 11.9 fL (9.1-12.4); NRBC ABSOLUTE 0.16 K/mm3 (0.00-0.02); NRBC Auto 2.2 /100 WBC (0.0-0.2); Platelet Count 190 K/mm3 (150-400); RDW Coefficient Variation 16.1 % (11.7-14.2); RDW Standard Deviation 54.1 fL (35.1-46.3); White Blood Cell Count 7.35 K/mm3 (4.00-11.30)
[2024-09-23 04:37] LABS: BASOPHILS PERCENT MAN 0 % (0-2); EOSINOPHILS ABSOLUTE MAN 0.07 K/mm3 (0.00-0.68); EOSINOPHILS PERCENT MAN 1 % (0-6); LYMPHOCYTES ABSOLUTE MAN 0.66 K/mm3 (0.84-5.20); LYMPHOCYTES PERCENT MAN 9 % (21-46); METAMYELOCYTE ABSOLUTE MAN 0.07 K/mm3 (0.00-0.00); METAMYELOCYTE PERCENT MAN 1 % (0-0); MONOCYTES ABSOLUTE MAN 0.51 K/mm3 (0.16-1.47); MONOCYTES PERCENT MAN 7 % (4-13); MYELOCYTE ABSOLUTE MAN 0.22 K/mm3 (0.00-0.00); MYELOCYTE PERCENT MAN 3 % (0-0); SEG NEUTROPHILS PERCENT MAN 79 % (41-73); TOTAL CELLS COUNTED 100
[2024-09-23 04:42] LABS: Bun/Creatinine Ratio 34.6 (12.0-20.0); Calcium, Blood 8.6 mg/dL (8.5-10.1); Creatinine, Blood 1.27 mg/dL (0.60-1.20); Potassium, Blood 3.4 mmol/L (3.5-5.5)
--- NOTE | 2024-09-23 07:26 | NUR ---
shift summary. patient is alert and oriented. patient asking if we had ability to do laundry as he is concerned that his clothes are dirty prior to discharge, discussed with patient the possibility of getting some clothes from resources to wear home or paper scrubs-relayed to day shift nurse. no acute changes noted. patient is able to make his needs known and calls appropriately report given to dayshift nurse.
[2024-09-23] MEDS ORDERED: Potassium Chloride 20 MEQ TabCR PO ONE (09:35)
[2024-09-23] MEDS ORDERED: Sodium Chloride 1 GM TAB PO SCH (10:00)
--- NOTE | 2024-09-23 12:45 | NUR ---
A&Ox4 ON 3LNC, PT AMBULATES W/SBA TO BSC AND USES URINAL. PT TRANSFERRED TO [facility] W/HIS PERSONAL BELONGINGS VIA . REPORT WAS GIVEN TO [place] HARRIS PRIOR TO TRANSFER.
--- NOTE | 2024-09-23 13:10 | NUR ---
1245 PCU TRANSFER TO ROOM 211 PT TO ROOM 211. 20 G SL PRESENT LFA. FLUSHES WELL. BACK TO SL. LUNGS DIMINISHED BL BASES. PT WEARING SCDS. ALERT AND ORIENTED X-4. ORIENTED TO ROOM. WATER PROVIDED. WILL CONTINUE TO MONITOR.
[2024-09-23] MEDS ORDERED: Enoxaparin 40 MG/0.4 ML SYR SC SCH (17:00)
--- NOTE | 2024-09-23 17:30 | NUR ---
END OF SHIFT PT EATING DINNER. LARGE BM TODAY. PLAN FOR MPI/STRESS TEST PER NEW ORDER. DENIES COMPLAINTS. VSS. WILL CONTINUE TO MONITOR.
--- NOTE | 2024-09-23 19:48 | NUR ---
PT EDUCATED ON SCHEDULED NUCLEAR STRESS TEST FOR TOMORROW. INSTRUCTED PT NO CAFFIENE INTAKE FOR 12 HOURS BEFORE; STARTING AT 1930 TONIGHT. EDUCATED PT CHOCOLATE CONTAINS CAFFIENE. INSTRUCTED TECHNICAL SUPPORT COORDINATOR ON DIET ORDER TO WITHHOLD ALL CAFFIENE.
[2024-09-24 04:34] VITALS: BP 107/81
[2024-09-24 06:09] LABS: Hematocrit 33.3 % (37.0-53.0); Hemoglobin 11.2 g/dL (13.5-17.5); Mean Corpuscular HGB Conc 33.6 g/dL (31.5-36.5); Mean Corpuscular Volume 92 fL (80-100); NRBC ABSOLUTE 0.25 K/mm3 (0.00-0.02); NRBC Auto 3.3 /100 WBC (0.0-0.2); Platelet Count 170 K/mm3 (150-400); RDW Coefficient Variation 16.1 % (11.7-14.2); Red Blood Cell Count 3.61 M/mm3 (4.30-5.90); White Blood Cell Count 7.63 K/mm3 (4.00-11.30)
--- NOTE | 2024-09-24 06:16 | NUR ---
[employer] SUMMARY PT A/OX4. ABLE TO MAKE NEEDS KNOWN. PT HAS PLANNED NUCLEAR STRESS TEST. EDUCATED PT ON PROCEDURE AND NEED FOR NO CAFFIENE. PT AGREEABLE. CALL LIGHT ACCESSIBLE. BED LOCKED AND LOW. PT REMAINS ON 3LPM O2 NC WHEN AT REST. PT DENIES SOB AT REST. CARE WILL CONTINUE UNTIL REPORT GIVEN TO ONCOMING NURSE.
[2024-09-24 06:33] LABS: Bun/Creatinine Ratio 33.3 (12.0-20.0); Creatinine, Blood 1.2 mg/dL (0.60-1.20); Potassium, Blood 3.7 mmol/L (3.5-5.5)
[2024-09-24 07:59] VITALS: BP 120/90
[2024-09-24 08:49] LABS: BASOPHILS PERCENT MAN 0 % (0-2); EOSINOPHILS PERCENT MAN 0 % (0-6); LYMPHOCYTES ABSOLUTE MAN 0.53 K/mm3 (0.84-5.20); LYMPHOCYTES PERCENT MAN 7 % (21-46); MONOCYTES ABSOLUTE MAN 0.61 K/mm3 (0.16-1.47); MONOCYTES PERCENT MAN 8 % (4-13); NEUTROPHILS ABSOLUTE MAN 6.48 K/mm3 (1.96-9.15); SEG NEUTROPHILS PERCENT MAN 85 % (41-73); TOTAL CELLS COUNTED 100
[2024-09-24 14:40] VITALS: BP 122/91
[2024-09-24 18:16] VITALS: BP 123/95
--- NOTE | 2024-09-24 18:24 | NUR ---
SHIFT SUMMARY PT A&O X4. PT INDEPENDENT IN ROOM. UTILIZES BEDSIDE COMMODE AND URINAL. PT TOLERATING DIET. DENIES N&V. 4L O2 VIA NASAL CANNULA. PT DENIES SOB AT REST. PLAN TO DISCHARGE 09/25/24 PENDING HOME O2 EVAL. PT MAKES NEED KNOWN. CALL LIGHT WITHIN REACH.
[2024-09-24 20:39] VITALS: BP 128/90
[2024-09-24 23:08] VITALS: BP 113/78
[2024-09-25] VITALS (8 sets, daily range): BP systolic 123–137; BP diastolic 90–97
--- NOTE | 2024-09-25 05:28 | NUR ---
SHIFT SUMMARY NO ACUTE CHANGES TO REPORT OVERNIGHT. PT HAS RESTED MOST OF THE NIGHT. SOB WITH EXERTION, AND TACYCARDIA. ON TELE, TACYCARDIA RESOLVES AT REST. PT DENIES PAIN. ON NASAL CANNULA T/O SHIFT, ROQUE BIOX IN PLACE AND MAINTAINING SATS WHEN O2 IN PLACE. PLAN IS FOR HOME O2 EVAL TODAY AND THEN DISCHARGE. BED IN LOWEST POSITION, CALL LIGHT WITHIN REACH.
[2024-09-25 06:12] LABS: Hematocrit 33.2 % (37.0-53.0); Hemoglobin 10.8 g/dL (13.5-17.5); Mean Corpuscular HGB 30.7 pg (26.0-34.0); Mean Corpuscular HGB Conc 32.5 g/dL (31.5-36.5); Mean Corpuscular Volume 94 fL (80-100); Mean Platelet Volume 11.6 fL (9.1-12.4); NRBC ABSOLUTE 0.25 K/mm3 (0.00-0.02); NRBC Auto 3.3 /100 WBC (0.0-0.2); Platelet Count 174 K/mm3 (150-400); RDW Coefficient Variation 16.5 % (11.7-14.2); RDW Standard Deviation 55.4 fL (35.1-46.3); Red Blood Cell Count 3.52 M/mm3 (4.30-5.90); White Blood Cell Count 7.51 K/mm3 (4.00-11.30)
[2024-09-25 06:34] LABS: BAND PERCENT MAN 3 % (0-8); BASOPHILS PERCENT MAN 0 % (0-2); EOSINOPHILS PERCENT MAN 0 % (0-6); LYMPHOCYTES PERCENT MAN 8 % (21-46); METAMYELOCYTE ABSOLUTE MAN 0.22 K/mm3 (0.00-0.00); METAMYELOCYTE PERCENT MAN 3 % (0-0); MONOCYTES PERCENT MAN 4 % (4-13); NEUTROPHILS ABSOLUTE MAN 6.38 K/mm3 (1.96-9.15); SEG NEUTROPHILS PERCENT MAN 82 % (41-73); TOTAL CELLS COUNTED 100
[2024-09-25 06:57] LABS: Creatinine, Blood 1.06 mg/dL (0.60-1.20); Potassium, Blood 3.8 mmol/L (3.5-5.5)
[2024-09-25] MEDS ORDERED: PredniSONE 20 MG Tab PO SCH (09:00)
--- NOTE | 2024-09-25 17:20 | NUR ---
SHIFT SUMMARY: TOOK OVER CARE @ 0715. NO NEW CHANGES T/O SHIFT. PATIENT IS A&OX4, PLEASANT AND COOPERATIVE c CARE. PATIENT IS ON 4 LITERS NC SATTING BETWEEN 89-93% T/O THIS SHIFT. PATIENTS BASELINE IS RA AT HOME. PATIENT HAD A HOME 02 EVAL DONE AND RT REPORTED HE NEEDS 3 LITERS NC WHEN RESTING, AND 8 LITERS FOR EXERTION. EDUCATED PATIENT ON INCENTIVE SPIROMERTER AND PATIENT USED IT T/O SHIFT. ON TELE SR, HR IN 80S BPM. PATIENT DENIES ANY CHEST PAIN/PRESSURE, DIZZINESS, OR HEADACHES, OR N/V. PATIENT USED BSC W/ SBA BECAUSE OF DESATTING IN THE LOW 80S. PATIENT IS CONTINENT OF BLADDER/BOWEL. PATIENT TOLERATES DIET. FAMILY VISITED PATIENT TODAY. RECIEVED SCHEDULED MEDS PER EMAR. SCDS ON, BED IN LOWEST POSITION, AND CALL LIGHT IN REACH.
[2024-09-26 05:53] VITALS: BP 109/86
--- NOTE | 2024-09-26 06:05 | NUR ---
SHIFT SUMMARY AOX4. VSS. TELE NSR HR 79. DENIES DYSPNEA @REST. SPO2 90-93% ON 4L O2. BS DIM W/FINE CRACKLES IN BASES. E/U RESP @REST. TRACE EDEMA TO BILAT ANKLES. IND W/URINAL. DENIES N/V OR PAIN. CALL LIGHT IN REACH. PT ANTICIPATING DC HOME TODAY.
[2024-09-26 07:11] VITALS: BP 143/92
[2024-09-26 07:26] LABS: Bun/Creatinine Ratio 27.2 (12.0-20.0); Creatinine, Blood 1.14 mg/dL (0.60-1.20); Potassium, Blood 4.1 mmol/L (3.5-5.5)
--- NOTE | 2024-09-26 08:16 | NUR ---
TELE REPORTING HR 129-130. ADMINISTERED 12.5MG METOPROLOL PER ORDERS PRIOR TO CALL. NOTIFIED DR HAQ; INSTRUCTED TO WAIT 30 MINUTES AND REASSESS. NOTIFY DR HAQ IF HR HAS NOT IMPROVED.
--- NOTE | 2024-09-26 10:08 | NUR ---
NOTIFIED DR HAND OF RUN OF SVT. PT ASYMPTOMPATIC. NO NEW ORDERS.
[2024-09-26] MEDS ORDERED: ACET325 PO (10:52)
[2024-09-26] MEDS ORDERED: FAMO20 PO (10:55)
[2024-09-26] MEDS ORDERED: VISBIOME 112.51 EACH PO (10:55)
[2024-09-26] MEDS ORDERED: DOCU100 PO (10:55)
[2024-09-26] MEDS ORDERED: Lopressor 25 mg25 MG PO (10:57)
[2024-09-26] MEDS ORDERED: PRED20 PO (10:58)
[2024-09-26] MEDS ORDERED: SENN187 PO (10:58)
[2024-09-26] MEDS ORDERED: SULTRIDS PO (10:59)
[2024-09-26 11:28] VITALS: BP 125/97
--- NOTE | 2024-09-26 11:48 | NUR ---
discharged vss. reviewed dc instructions w/pt; verbalized understanding. pt insists on driving self home. offered to set up ride; pt declined. asked pt if anyone could give him a ride and he said he did not need anyone to drive him home. when asked if he understood that it was strongly discouraged that he drive home, he stated he understood. pt adamant about driving self home. pt signed discharge instructions and left unit in wc w/possessions and dc paperwork in hand.
== END 2024-09-26 11:49 | disposition home health service (06) | DRG 871 ==
LOC: ER 15:35 → MEDS 19:08 → ERHOLD 19:08 → PCU 19:08 → MEDS 09-09 00:06 → PCU 09-10 08:30 → SURS 09-23 13:08
PROVIDERS: Family Medicine; Internal Medicine; Internal Medicine Critical Care Medicine; Nurse Practitioner Acute Care; Student in an Organized Health Care Education/Training Program; ADMIT Student in an Organized Health Care Education/Training Program
PROC: 3E03329 Introduction of Other Anti-infective into Peripheral Vein, Percutaneous Approach (ICD-10-PCS; 2024-09-08)
PROC: 5A09457 Assistance with Respiratory Ventilation, 24-96 Consecutive Hours, Continuous Positive Airway Pressure (ICD-10-PCS; principal; 2024-09-10)
PROC: 5A0955A Assistance with Respiratory Ventilation, Greater than 96 Consecutive Hours, High Flow/Velocity Cannula (ICD-10-PCS; 2024-09-10)
PROC: 4A033R1 Measurement of Arterial Saturation, Peripheral, Percutaneous Approach (ICD-10-PCS; 2024-09-10)
DX: A41.9 Sepsis, unspecified organism (principal); J18.9 Pneumonia, unspecified organism; J96.01 Acute respiratory failure with hypoxia; K68.2 Retroperitoneal fibrosis; E87.1 Hypo-osmolality and hyponatremia; I24.89 Other forms of acute ischemic heart disease; I13.0 Hypertensive heart and chronic kidney disease with heart failure and stage 1 through stage 4 chronic kidney disease, or unspecified chronic kidney disease; I50.30 Unspecified diastolic (congestive) heart failure; K76.0 Fatty (change of) liver, not elsewhere classified; R65.20 Severe sepsis without septic shock; N18.30 Chronic kidney disease, stage 3 unspecified; E78.5 Hyperlipidemia, unspecified; K21.9 Gastro-esophageal reflux disease without esophagitis; R04.0 Epistaxis; I71.40 Abdominal aortic aneurysm, without rupture, unspecified; Z79.899 Other long term (current) drug therapy; Z87.891 Personal history of nicotine dependence; Z79.02 Long term (current) use of antithrombotics/antiplatelets; Z99.81 Dependence on supplemental oxygen; J43.9 Emphysema, unspecified
CPT/HCPCS: 0202U; 0528U; 36415; 36600; 71045; 71046; 71250; 74177; 80048; 80053; 81001; 82803; 83605; 83690; 83735; 83880; 84145; 84484; 85025; 85027; 87070; 87205; 87305; 87385; 87389; 87449; 88108; 88312; 92526; 92610; 93005; 93010; 93306; 94660; 94664; 94761; 94762; 99285-25; A9270; J0171; J0456; J0696; J1644; J1650; J1940; J2248; J2405; J7050; J7060; J7120; J7512; Q9967